=== PATIENT | male | born 1950 | race Caucasian/White ===

== ENCOUNTER 2017-08-26 12:35 | Outpatient (CLI) | payer OTHER ==
[2017-08-26 14:16] LABS: Hematocrit 42.1 % (42.0-52.0); Mean Platelet Volume 7.9 fL (7.4-10.4); Red Blood Cell (RBC) Count 4.54 mill/uL (4.70-6.10); White Blood Cell (WBC) Count 9.4 thou/uL (4.8-10.8)
[2017-08-26 14:22] LABS: Bilirubin Negative (Negative); Blood, Urine Negative (Negative); Glucose, Urine (Dipstick) Negative (Negative); Ketone, Urine Negative (Negative); Nitrite Negative (Negative); Protein, Urine (Dipstick) Negative (Neg-Trace); Urobilinogen 0.2 mg/dL (0.2-1.0)
[2017-08-26 14:25] LABS: Bacteria/HPF None Seen HPF (None Seen); Hyaline Casts/LPF 0-3 HYALINE CAST LPF (0-3 Hyaline); RBC/HPF 0-3 HPF (0-3); Squamous Epithelial None Seen HPF (0-3); WBC/HPF None Seen HPF (0-3)
[2017-08-26 14:40] LABS: Anion Gap 11 mmol/L (10-20); BUN (Urea Nitrogen) 12 mg/dL (8.4-25.7); Calc. Creatinine Clearance 0 mL/min (70-130); Calcium 9.4 mg/dL (7.8-10.44); Carbon Dioxide 28 mmol/L (23-31); Chloride 105 mmol/L (98-107); Estimated GFR-MDRD Greater than 90
== END 2017-08-26 12:36 | disposition home or self-care (01) ==
LOC: LABBT 12:35
PROVIDERS: ATTEND Orthopaedic Surgery
DX: Z01.818 Encounter for other preprocedural examination (principal); S76.111A Strain of right quadriceps muscle, fascia and tendon, initial encounter
CPT/HCPCS: 80048; 81001; 85027; 93005; 93010

== ENCOUNTER 2017-09-01 08:35 | Day surgery (SDC) | payer OTHER ==
[2017-08-26 12:58] VITALS: BMI 34.5
[2017-09-01] MEDS ORDERED: Dexamethasone 4 mg/ml Vial ONE (09:36)
[2017-09-01] MEDS ORDERED: Midazolam HCl 2 mg/2 ml Vial ONE (09:36)
[2017-09-01] MEDS ORDERED: Fentanyl 100 MCG/2 ML VIAL ONE ×5 (09:36→14:25)
[2017-09-01] MEDS ORDERED: CEFAZOLIN/Water 2 GM/20 ML SYRINGE ONE (10:13)
[2017-09-01] MEDS ORDERED: HYDROmorphone 0.5 MG/0.5 ML SYRINGE ONE ×2 (14:08→14:36)
--- NOTE | 2017-09-01 15:27 | OP ---
DATE OF PROCEDURE: 09/01/2017 PREOPERATIVE DIAGNOSIS: Right patellar tendon rupture. POSTOPERATIVE DIAGNOSIS: Right patellar tendon rupture. PROCEDURE PERFORMED: Right patellar tendon repair. STAFF: Tarik Beach M.D. CUSTOMER SUPPORT PROFESSIONAL: Sadiq Barraza PA-C. ANESTHESIA: Dr. Díaz. The patient received a LMA with a single shot fascia illiaca ESTIMATED BLOOD LOSS: 75 mL. TOURNIQUET TIME: 53 minutes at 300 mmHg. ANTIBIOTICS: Ancef x2. IMPLANTS: x2 FiberWires. COMPLICATIONS: None. HISTORY OF PRESENT ILLNESS: Mr. Monteiro is a 66-year-old male who on 2016 fell and struck his knee while in [place], fell and broke his patellar tendon, he was in a knee immobilizer. He was seen in my clinic. He was brought, had preoperative evaluation, noted to have a little irregularity to his EKG, was sent to see Dr. Garcia who did an echo, showed about 40% ejection fraction as well as some wall dorsum abnormalities that I could proceed with surgery. He said the patient needed close followup. He needed aspirin postoperatively. We discussed this patient's care. I discussed this with the patient. He understood The patient understood the risks and benefits of patellar tendon repair to include pain, scar, bleeding, infection, damage to vital structures, failure of procedure, continued pain, need for further surgeries. The patient understood the risks and benefits and elected to proceed. PROCEDURE IN DETAIL: Time out was performed designating the patient's right lower extremity as the operative site based on sight, consents, and markings. After completion of timeout, the patient's right leg was prepped and draped in sterile fashion. Tourniquet was brought up and left up for a total of 53 minutes. Anterior midline incision had a large hemarthrosis as well as some fluid within the joint. We came down directly onto the tendon as well as the patella. I saw the full thickness tear, it was like a smiley face rent, almost to medial and lateral epicondyle on both sides capsule and his retinaculum. We washed out the knee. We actually found 4 loose bodies in the gutter laterally that had been expulsed from the knee which were removed. After we performed this, we took an x-ray, took pictures, placed 3 guide pins to ensure that we were within the patella on AP and lateral direction x-rays, being happy with our position within the patella we then drilled using a [employer] suture passer with 0 Vicryl to help to pass our sutures, we had run a #2 FiberWire in a locking fashion up and down for 2 sutures for a total of 4 limbs , we then passed limbs 1-2-1, oversewed through the bone tunnels. We then used [id number] stitches with #1 Vicryl, closed the entire tendon as well as retinaculum medially and laterally. We then washed. We closed with 0, 2-0, and gris. Tourniquet was let down 53 minutes. The patient was kept in extension for the remainder of the repair. The patient will remain in his knee immobilizer leg straight. He will take a daily 325 mg aspirin. He will follow up with me in 2 weeks for staple removal. HERMILA
[2017-09-01] MEDS ORDERED: Bupivacaine PF 0.5% 30 ML VIAL ONE (16:20)
[2017-09-01] MEDS ORDERED: Bupivacaine HCl 0.5%/Epinephrine 1:200,000/PF 30 ml Vial ONE (16:20)
[2017-09-01] MEDS ORDERED: Lidocaine 1% PF 5 ML VIAL ONE (17:14)
[2017-09-01] MEDS ORDERED: Ondansetron HCl/PF 4 MG/2 ML Vial ONE (17:14)
[2017-09-01] MEDS ORDERED: Ketorolac Tromethamine 30 MG/ML VIAL ONE (17:14)
[2017-09-01] MEDS ORDERED: Propofol 200 MG/20 ML VIAL ONE (17:14)
--- NOTE | 2017-09-05 16:15 | RAD ---
RIGHT KNEE ONE VIEW: History: Fluoroscopic view taken in OR during internal fixation procedure. History of patellar fracture. FINDINGS: Single AP projection shows three pins overlying the patella. Patella cannot be adequately assessed on this AP view. POS: CRU[facility]
== END 2017-09-01 16:20 | disposition home or self-care (01) ==
LOC: SDC 08:35
PROVIDERS: ATTEND Orthopaedic Surgery
PROC: 0LQQ0ZZ Repair Right Knee Tendon, Open Approach (ICD-10-PCS; principal; 2017-09-01)
DX: S76.111A Strain of right quadriceps muscle, fascia and tendon, initial encounter (principal); W19.XXXA Unspecified fall, initial encounter; M23.41 Loose body in knee, right knee; G47.30 Sleep apnea, unspecified; Z88.2 Allergy status to sulfonamides; Z98.890 Other specified postprocedural states; Z99.89 Dependence on other enabling machines and devices; Z97.4 Presence of external hearing-aid
CPT/HCPCS: 76001; 96374; C1769; J0670; J1100; J1170; J1885; J2001; J2250; J2270; J2405; J2704; J3010; S0020